=== PATIENT | male | born 1985 | race American Indian/Alaskan Native ===

== ENCOUNTER 2021-06-04 06:36 | Emergency (ER) | payer SELFPAY ==
[2021-06-04 06:41] VITALS: BP 132/80
[2021-06-04] MEDS ORDERED: IBUPROFEN 600 MG TAB PO ONE (07:37)
--- NOTE | 2021-06-04 07:43 | Emergency Department Report ---
ED Fall HPI - General Chief Complaint: Fall Stated Complaint: LEFT KNEE PAIN AND FACE PAIN Time Seen by Provider: 06/04/21 07:37 Source: EMS Mode of arrival: Wheelchair - History of Present Illness Initial Comments: Patient is a 36-year-old male that comes to the emergency room today after getting up and getting in the shower slipping and falling. He hit his face/lip and right knee during the fall. Fall was at home. It was witnessed. No LOC. He is here complaining with knee pain and face pain as well as a lip laceration. Bleeding is controlled on arrival. Patient has full range of motion of the knee. He is ambulatory. Superficial lack to the lip noted. Patient has right mandibular swelling concerning for potential fracture. Patient does not know when his last Tdap was. MD Complaint: fall -: Sudden, hour(s) Fall From: standing Fall Witnessed: yes, by family Place Fall Occurred: home Loss of Consciousness: none Prolonged Down Time?: no Symptoms Prior to Fall: none Location: face, other Severity: mild Quality: dull Context: tripped/slipped - Related Data Previous Rx's Medication Instructions Recorded Last Taken Type Amoxicillin [Trimox CAP] 500 mg PO BID #20 capsule 06/04/21 Unknown Rx traMADoL [Ultram] 50 mg PO Q6HR PRN #10 tablet 06/04/21 Unknown Rx Allergies Allergy/AdvReac Type Severity Reaction Status Date / Time No Known Allergies Allergy Verified 06/04/21 06:42 ED Review of Systems ROS: Stated complaint: LEFT KNEE PAIN AND FACE PAIN Other details as noted in HPI Comment: All other systems reviewed and negative ED Past Medical Hx - Past Medical History Previous Medical History?: No - Surgical History Past Surgical History?: No - Family History Family history: no significant - Social History Smoking Status: Current Every Day Smoker Substance Use Type: Alcohol - Medications Home Medications: Home Medications Medication Instructions Recorded Confirmed Last Taken Type Amoxicillin [Trimox CAP] 500 mg PO BID #20 capsule 06/04/21 Unknown Rx traMADoL [Ultram] 50 mg PO Q6HR PRN #10 tablet 06/04/21 Unknown Rx ED Physical Exam - General Limitations: No Limitations General appearance: alert, in no apparent distress - Head Head exam: Present: atraumatic, normocephalic - Eye Eye exam: Present: normal appearance - ENT ENT exam: Present: mucous membranes moist - Neck Neck exam: Present: normal inspection - Respiratory Respiratory exam: Present: normal lung sounds bilaterally. Absent: respiratory distress - Cardiovascular Cardiovascular Exam: Present: regular rate, normal rhythm. Absent: systolic murmur, diastolic murmur, rubs, gallop - GI/Abdominal GI/Abdominal exam: Present: soft, normal bowel sounds - Rectal Rectal exam: Present: deferred - Extremities Exam Extremities exam: Present: normal inspection - Back Exam Back exam: Present: normal inspection - Neurological Exam Neurological exam: Present: alert, oriented X3 - Psychiatric Psychiatric exam: Present: normal affect, normal mood - Skin Skin exam: Present: warm, dry, intact, normal color. Absent: rash - Expanded Skin Exam Expanded 1 - lac to right upper lip. swelling over right brandon. area. Blood noted in mouth at mandibular gum line. Tender to palpation. ED Course Vital Signs 06/04/21 06/04/21 06/04/21 06:40 07:57 08:10 Temperature 98.1 F Pulse Rate 75 Respiratory 16 16 18 Rate Blood Pressure 132/80 [Left] O2 Sat by Pulse 99 100 Oximetry ED Medical Decision Making - Radiology Data Radiology results: report reviewed, image reviewed nap - Medical Decision Making CT noted xray noted- small effusion jane/crutches ice to knee mediated for pain tdap updated Vital Signs 06/04/21 06/04/21 06/04/21 06:40 07:57 08:10 Temperature 98.1 F Pulse Rate 75 Respiratory 16 16 18 Rate Blood Pressure 132/80 [Left] O2 Sat by Pulse 99 100 Oximetry lip wound is superficial pt was given choice to suture or not; he does not want sutures. It is not through and through It involved only outer lip well approximated no bleeding wound cleaned wound care ice pack discussed dc plan of care with pt and his mother- including med, diet, activity, wound care and follow up. They verbalize understanding of paln of care - Differential Diagnosis ro knee fx/lac/ro brandon/facial fracture Critical care attestation.: If time is entered above; I have spent that time in minutes in the direct care of this critically ill patient, excluding procedure time. ED Disposition Clinical Impression: Laceration, Knee effusion Fall Qualifiers: Encounter type: initial encounter Qualified Code(s): W19.XXXA - Unspecified fall, initial encounter Knee contusion Qualifiers: Encounter type: initial encounter Laterality: unspecified laterality Qualified Code(s): S80.00XA - Contusion of unspecified knee, initial encounter Disposition: HOME / SELF CARE / HOMELESS Is pt being admited?: No Does the pt Need Aspirin: No Condition: Stable Instructions: Knee Effusion, [id number] Additional Instructions: ice to lip today ice to knee today warm compresses to knee tomorrow expect to be sore motrin and tylenol for pain med as ordered today until gone follow up with PCP next week to reeval your leg referral below leave your lip alone today-- dont rub or wash with soap and water in the am wash it lightly with soap and water allow wound to heal from inside out Prescriptions: Amoxicillin [Trimox CAP] 500 mg PO BID #20 capsule traMADoL [Ultram] 50 mg PO Q6HR PRN #10 tablet PRN Reason: Pain Referrals: PARUL POZO MD [Staff Physician] - 3-5 Days Time of Disposition: 09:20
[2021-06-04] MEDS: TETANUS,DIPH,PERTUSS(ACELL) VACCINE 0.5 ML SYRINGE IM ONE ×2 (07:55→10:55)
--- NOTE | 2021-06-04 08:44 | XRay Report ---
LEFT KNEE 3 VIEWS INDICATION: pain sp fall. COMPARISON: None. IMPRESSION: No acute osseous injury is appreciated. No significant DJD. Trace joint effusion is theodore pected on the lateral image. Signer Name: Emir Simon Jr, MD Signed: 06/04/2021 8:40 AM Workstation Name: [id number]
[2021-06-04] MEDS ORDERED: LIDOCAINE 1%/EPINEPHRINE 1:100,000 VIAL (20 ML) INFILTRATI ONE (08:49)
[2021-06-04] MEDS ORDERED: SODIUM CHLORIDE 0.9% IRR 500 ML BOTTLE IR NR (09:00)
--- NOTE | 2021-06-04 09:12 | Cat Scan Report ---
CT FACIAL BONES WITHOUT CONTRAST INDICATION : sp fall- right brandon/max trauma -pain/ro fx. TECHNIQUE: Axial imaging performed through the face with reconstructed images also reviewed. Sagitta l and coronal reformatted images. All CT scans at this location are performed using CT dose reduction for ALARA by means of automated exposure control. COMPARISON: None FINDINGS: There is moderate to severe right-sided facial swelling along the body of the mandible. The re is trace gas in this area but no discrete encapsulated fluid collection. Poor dentition is noted. There is a 1.8 x 1.2 cm lucent lesion in the right mandibular body which appears to be associated wit h tooth roots and a large dental cariy in a right posterior molar. There are 2 small periapical lucen cies associated with a left posterior mandibular molar measuring 5 mm and 6 mm. These probably repres ent periapical tooth abscesses. The mandible is otherwise intact. No evidence for mandibular fracture . The remaining facial bones are intact. The sinuses are well-aerated. Orbital cavities and contents appear unremarkable. The skull base is intact. No gross intracranial abnormality is detected. IMPRESSION: No acute facial injury is appreciated. Poor dentition. Bilateral lucent lesions in the mandible are identified as described which probably r epresent periapical tooth abscesses. Please correlate with the patient's clinical presentation. Signer Name: Emir Simon Jr, MD Signed: 06/04/2021 9:08 AM Workstation Name: [id number]
[2021-06-04] MEDS ORDERED: HYDROcodone/ACETAMINOPHEN 5-325 MG TAB PO ONE (10:43)
== END 2021-06-04 11:17 | disposition home or self-care (01) ==
LOC: ED 06:36
DX: S01.511A Laceration without foreign body of lip, initial encounter (principal); S80.02XA Contusion of left knee, initial encounter; F17.200 Nicotine dependence, unspecified, uncomplicated; Z72.89 Other problems related to lifestyle; W18.2XXA Fall in (into) shower or empty bathtub, initial encounter; Y93.E1 Activity, personal bathing and showering; Y92.89 Other specified places as the place of occurrence of the external cause; Y99.8 Other external cause status
CPT/HCPCS: 70486; 90471; 90715; 99284